=== PATIENT | male | born 1945 | race Caucasian/White ===

== ENCOUNTER 2019-12-07 06:26 | Day surgery (SDC) | payer MEDICARE, OTHER ==
[~2019-12-07 06:26] MED LIST: Midazolam 1 MG/ML 2 ML SDV ONE; fentaNYL 100 MCG/2 ML SDV ONE
[2019-12-07] MEDS ORDERED: fentaNYL 100 MCG/2 ML SDV IV ONE ×3 (06:27→07:06)
[2019-12-07] MEDS ORDERED: Midazolam 1 MG/ML 2 ML SDV IV ONE ×3 (06:27→07:07)
[2019-12-07] MEDS ORDERED: Dextrose 5%-0.45% NaCl 1,000 ML IV SCH (06:55)
--- NOTE | 2019-12-07 13:52 | OR ---
DATE: 12/07/2019 PROCEDURE PERFORMED: Esophagogastroduodenoscopy, narrow-band imaging, and multiple pinch biopsies. INSTRUMENT USED: GIF-HQ190 Olympus video panendoscope. PREMEDICATIONS: Fentanyl 100 mcg intravenous, Versed 2 mg intravenous. Nasal O2 cannula. The procedure was done under pulse oximetry, BP recording, and surveillance system monitor. INDICATIONS: Diabetic patient with persistent multiple abdominal symptoms and progressive weight loss unexplained and not responsive to medical measures. Esophagogastroduodenoscopy is performed for detection of any active erosive lesions, Fragoso esophagus, and/or malignancy also under consideration. H. pylori status to be determined, small bowel biopsies to be obtained if indicated, and endoscopic hemostasis therapy if needed. The scope was passed with ease. Adequate visualization of the esophagus was made from proximal to distal areas. No upper esophageal lesions identified. No distal esophageal stricture. No uphill or downhill esophageal varices. No Tisha-Bradshaw tear. No evidence of erosive esophagitis by Atlantic criteria. Prominent fold was noted at Z-line. NBI views were obtained. Multiple pinch biopsies were obtained, send for histopathology. Gastric fundus examination by retroflexion showed no polypoid lesions. No proximal gastric varices noted. No gastric ulcer, malignant mass, or vascular ectasia identified. Duodenal bulb was unremarkable. Visualized second part of the duodenum was unremarkable. Multiple pinch biopsies, 4 in number, were taken from different areas of the second part of the duodenum and tissues were also obtained from the duodenal bulb at 9 and 12 o'clock positions and sent for histopathology. Multiple pinch biopsies were also obtained from the gastric antrum and proximal body and sent for PyloriTek test for H. pylori histopathology. No bleeding was noted from any of the visualized areas at the completion of examination. Photographs were taken of the duodenal bulb, gastric antrum, fundus, and distal esophagus. IMPRESSION: Normal study. The patient tolerated the procedure well. [facility] /[id number]
--- NOTE | 2019-12-07 15:47 | LETTER ---
12/07/2019 RE: VITALIY OLMEDO : 1945 Sukhwinder Matias MD [facility] [address] [place] [address] Matias: Mr. Vitaliy Olmedo had an esophagogastroduodenoscopy done this morning and he tolerated the procedure well. I herewith send a copy of the endoscopy note and photographs for your review. Thank you. Sincerely, [facility] /[id number]
== END 2019-12-07 09:25 | disposition home or self-care (01) ==
LOC: DL.ENDO 06:26
PROVIDERS: ATTEND Internal Medicine Gastroenterology
DX: K29.50 Unspecified chronic gastritis without bleeding (principal); I78.1 Nevus, non-neoplastic; K31.89 Other diseases of stomach and duodenum; K22.10 Ulcer of esophagus without bleeding; K22.8 Other specified diseases of esophagus; E66.09 Other obesity due to excess calories; F32.9 Major depressive disorder, single episode, unspecified; E78.5 Hyperlipidemia, unspecified; G25.2 Other specified forms of tremor; E11.22 Type 2 diabetes mellitus with diabetic chronic kidney disease; I12.9 Hypertensive chronic kidney disease with stage 1 through stage 4 chronic kidney disease, or unspecified chronic kidney disease; N18.9 Chronic kidney disease, unspecified; D63.1 Anemia in chronic kidney disease; K43.2 Incisional hernia without obstruction or gangrene; Z98.890 Other specified postprocedural states; Z87.891 Personal history of nicotine dependence; Z79.82 Long term (current) use of aspirin; Z68.36 Body mass index [BMI] 36.0-36.9, adult
CPT/HCPCS: 87077; 88305; 88342; J2250; J3010; J7042

== ENCOUNTER 2019-12-16 05:32 | Day surgery (SDC) | payer MEDICARE, OTHER ==
[~2019-12-16 05:32] MED LIST changes: +Dextrose 5%-0.45% NaCl 1,000 ML IV SCH; -Midazolam 1 MG/ML 2 ML SDV ONE; +Sodium Chloride 0.9% 10 ML Syringe FLUSH PRN; -fentaNYL 100 MCG/2 ML SDV ONE
[2019-12-16] MEDS ORDERED: Midazolam 1 MG/ML 2 ML SDV IV ONE ×7 (05:33→06:55)
[2019-12-16] MEDS ORDERED: fentaNYL 100 MCG/2 ML SDV IV ONE ×3 (05:33→06:36)
[2019-12-16] MEDS ORDERED: Midazolam 1 MG/ML 2 ML SDV ONE (06:12)
[2019-12-16] MEDS ORDERED: fentaNYL 100 MCG/2 ML SDV ONE (06:13)
--- NOTE | 2019-12-16 09:49 | LETTER ---
12/16/2019 Sukhwinder Matias MD [facility] [address] [place] [address] RE: GAETANOVITALIY QUACH : [address] Matias: Mr. Vitaliy Danielle had colonoscopic examination done this morning and he tolerated the procedure well. I herewith send a copy of the endoscopy note and photographs for your review. Thank you. Sincerely, [facility] /[id number]
--- NOTE | 2019-12-16 10:52 | OR ---
DATE: 12/16/2019 PROCEDURES: Total colonoscopy, narrow-band imaging, and multiple cold snare polypectomies. INSTRUMENT USED: PCF-H190DL Olympus video colonoscope. PREMEDICATIONS: Fentanyl 100 mcg intravenous, Versed 4 mg intravenous. Nasal O2 cannula. The procedure was done under pulse oximetry, BP recording, and patient monitor. INDICATION: The patient with rectal bleeding and abdominal pain. Colonoscopic examination is done for detection of any polypoid lesions and removal, endoscopic hemostasis therapy if needed. DESCRIPTION OF PROCEDURE: Initial rectal exam showed enlarged prostate with firm prostatic bed. Rigid anoscopy was normal. The colonoscope was passed with ease. In the proximal rectum, a 5 mm sized benign-appearing polyp was noted, cold snare polypectomy was done, the tissue was retrieved and sent for histopathology. In the proximal sigmoid colon, multiple 8 mm sized polyps, 2 in number were noted, NBI views were obtained, photographs were taken, cold snare polypectomies were done, the tissues were retrieved and sent for histopathology. The scope was passed with ease up to the ileocecal area. Photographs were taken of the cecum, identified by landmarks of appendiceal orifice and double-bulged ileocecal folds. No bleeding was noted from any of the visualized areas at the commencement of the examination. Bowel preparation was found to be adequate, Ashfield scale 2 in all the regions, total score 6. In the proximal ascending colon, small angiodysplastic area was noted without bleeding from it. NBI views were obtained, photographs were obtained. Probing the proximal sides of folds and flexures using adequate distention and clearing up the stool material, withdrawal of the scope was made. Cecum to rectum time over 6 minutes. No bleeding was noted from any of the visualized areas at the completion of the examination. IMPRESSION: 1. Multiple colonic polyps. 2. Diverticulosis. 3. Ascending colon angiodysplasia. The patient tolerated the procedure well. [facility] /[id number]
== END 2019-12-16 09:18 | disposition home or self-care (01) ==
LOC: DL.ENDO 05:32
PROVIDERS: ATTEND Internal Medicine Gastroenterology
DX: D12.8 Benign neoplasm of rectum (principal); D12.5 Benign neoplasm of sigmoid colon; K57.30 Diverticulosis of large intestine without perforation or abscess without bleeding; K55.20 Angiodysplasia of colon without hemorrhage; E66.09 Other obesity due to excess calories; M19.90 Unspecified osteoarthritis, unspecified site; E78.5 Hyperlipidemia, unspecified; E11.22 Type 2 diabetes mellitus with diabetic chronic kidney disease; K43.9 Ventral hernia without obstruction or gangrene; D63.1 Anemia in chronic kidney disease; I12.9 Hypertensive chronic kidney disease with stage 1 through stage 4 chronic kidney disease, or unspecified chronic kidney disease; N18.9 Chronic kidney disease, unspecified; F32.9 Major depressive disorder, single episode, unspecified; G25.2 Other specified forms of tremor; Z87.891 Personal history of nicotine dependence; Z98.890 Other specified postprocedural states; Z79.82 Long term (current) use of aspirin; Z68.36 Body mass index [BMI] 36.0-36.9, adult
CPT/HCPCS: 45385; 88305; J2250; J3010; J7042

== ENCOUNTER 2020-06-24 06:21 | Day surgery (SDC) | payer MEDICARE, OTHER ==
[~2020-06-24 06:21] MED LIST changes: +Midazolam 1 MG/ML 2 ML SDV ONE; +fentaNYL 100 MCG/2 ML SDV ONE
[2020-06-24] MEDS ORDERED: Midazolam 1 MG/ML 2 ML SDV IV ONE ×6 (06:22→07:38)
[2020-06-24] MEDS ORDERED: fentaNYL 100 MCG/2 ML SDV IV ONE ×3 (06:22→07:28)
--- NOTE | 2020-06-24 08:56 | LETTER ---
06/24/2020 RE: VITALIY OLMEDO : 1945 Sukhwinder Matias MD [facility] [address] [place] [address] Matias: Mr. Vitaliy Olmedo had colonoscopic examination done this morning, and he tolerated the procedure well. I herewith send a copy of the endoscopy note and photographs for your review. Thank you. Sincerely, [facility] /[id number]
--- NOTE | 2020-06-24 09:20 | OR ---
DATE: 06/24/2020 PROCEDURE: Total colonoscopy. INSTRUMENT USED: PCF-H190DL Olympus video colonoscope. PREMEDICATIONS: Fentanyl 100 mcg intravenous, Versed 3.5 mg intravenous. Nasal O2 cannula. The procedure was done under pulse oximetry, BP recording, and cardiac care nurse. INDICATION: The patient with previous colonic tubular adenoma with high-grade dysplasia, recent constipation and rectal bleeding. Colonoscopic examination is done for detection of any polypoid lesions and removal, endoscopic hemostasis therapy if needed. DESCRIPTION OF PROCEDURE: Initial rectal exam was unremarkable. Rigid anoscopy was normal. The colonoscope was passed with ease. Few scattered diverticula were noted in the distal left colon along with some deformity. The scope was passed with ease up to the ileocecal area. Photographs were taken of the normal- appearing cecum identified by landmarks of appendiceal orifice and double-bulged ileocecal folds. No bleeding was noted from any of the visualized areas at the commencement of the examination. The bowel preparation was found to be adequate, Zapata scale 2 in the regions, total score 6. No stricture. No vascular ectasia. No large isolated ulcerations seen. No evidence of diffuse inflammatory bowel disease in the form of friability, contact bleeding, or ulcerations. No polyp or tumor mass identified. Probing the proximal sides of folds and flexures using adequate distention and clearing up the stool material, withdrawal of the scope was made, cecum to rectum time over 6 minutes. No bleeding was noted from any of the visualized areas at the completion of examination. IMPRESSION: Diverticulosis. The patient tolerated the procedure well. [facility] /[id number]
== END 2020-06-24 09:52 | disposition home or self-care (01) ==
LOC: DL.ENDO 06:21
PROVIDERS: ATTEND Internal Medicine Gastroenterology
DX: K57.31 Diverticulosis of large intestine without perforation or abscess with bleeding (principal); K59.00 Constipation, unspecified; E11.9 Type 2 diabetes mellitus without complications; E66.09 Other obesity due to excess calories; I10 Essential (primary) hypertension; E78.5 Hyperlipidemia, unspecified; D64.9 Anemia, unspecified; K43.9 Ventral hernia without obstruction or gangrene; Z86.010 Personal history of colon polyps; Z98.890 Other specified postprocedural states; Z68.39 Body mass index [BMI] 39.0-39.9, adult
CPT/HCPCS: 45378; J2250; J3010; J7042

== ENCOUNTER 2021-07-06 10:09 | Emergency (ER) | payer MEDICARE, OTHER ==
[2021-07-06 10:53] LABS: ANION GAP 16.3 mEq/L (7-13)
[2021-07-06 11:48] LABS: CORONAVIRUS COVID-19 NAA NEGATIVE (NEGATIVE)
== END 2021-07-06 12:52 ==
LOC: DL.ED 10:09
DX: I44.1 Atrioventricular block, second degree (principal); R00.1 Bradycardia, unspecified; K21.9 Gastro-esophageal reflux disease without esophagitis; I10 Essential (primary) hypertension; E11.9 Type 2 diabetes mellitus without complications; E66.9 Obesity, unspecified; Z68.41 Body mass index [BMI] 40.0-44.9, adult; Z87.891 Personal history of nicotine dependence; Z20.822 Contact with and (suspected) exposure to COVID-19; Z79.899 Other long term (current) drug therapy; Z79.82 Long term (current) use of aspirin; Z79.84 Long term (current) use of oral hypoglycemic drugs; Z79.4 Long term (current) use of insulin
CPT/HCPCS: 0240U; 36415; 71045; 80053; 84484; 85025; 93005; 99285

== ENCOUNTER 2022-12-18 20:02 | Emergency (ER) | payer MEDICARE, OTHER ==
[2022-12-18] MEDS: Bacitracin Oint 1 GM U/D Packet TOP ONE (20:40)
[2022-12-18] MEDS: Lidocaine 2% with EPINEPHrine 1:200,000 20 ML SDV INJECT ONE (20:40)
[2022-12-18] MEDS: Diphtheria,Pertussis(Acell),Tetanus Vaccine 0.5 ML Syringe IM ONE (20:41)
[2022-12-18] MEDS: Amoxicillin/Clavulanate K 875-125 MG Tab PO ONE (21:25)
== END 2022-12-18 21:33 | disposition home or self-care (01) ==
LOC: DL.ED 20:02
DX: S91.051A Open bite, right ankle, initial encounter (principal); W54.0XXA Bitten by dog, initial encounter
CPT/HCPCS: 12002; 99283; A9270; J3490